=== PATIENT | male | born 1985 | race Caucasian/White ===

== ENCOUNTER → 2018-07-16 14:11 | Outpatient (CLI) | payer OTHER, SELFPAY ==
--- NOTE | 2018-07-16 14:15 | US_ITS ---
STUDY: ABDOMINAL ULTRASOUND - RIGHT UPPER QUADRANT REASON FOR VISIT: Male, 33 years old. Right upper quadrant pain. TECHNIQUE: Ultrasound evaluation of the right upper quadrant was performed with real-time and static varma-scale imaging. TECHNICAL QUALITY: Adequate. COMPARISON: None. FINDINGS: Liver: The liver measures 12.9 cm. There is normal echogenicity of the liver. The bile ducts are within normal limits. There is hepatic color flow. The direction of portal flow is hepatopetal. There is no demonstrated mass lesion. Gallbladder: Normal distended gallbladder. The gallbladder wall measures 2.1 mm. There is a negative sonographic Galo's sign. There is no pericholecystic fluid. There are no gallstones. Common Bile Duct (C.B.D.): The common bile duct measures 1.3 mm. Pancreas: Normal size of the head, body of the pancreas. The tail portion is obscured due to overlying bowel gas. There is normal echogenicity of the pancreas. There is no demonstrated pancreatic mass or cyst. Right Kidney: Normal size of the right kidney. The right kidney measures 11.7 cm x 5.3 cm x 5.1 cm. Normal renal cortex. The right cortex measures 1.3 cm. There is no demonstrated renal mass or cyst. There is no right hydronephrosis. US/Gallbladder IMPRESSION: Normal right upper quadrant ultrasound examination. Electronically Signed: Ruben Garza MD at 15:26 EST Tel [phone], Service support ,
== END ==
PROVIDERS: PCP Internal Medicine; Visit Provider Surgery
DX: R10.11 Right upper quadrant pain (principal)
CPT/HCPCS: 76705

== ENCOUNTER 2018-07-22 11:25 | Day surgery (SDC) | payer OTHER, SELFPAY ==
[2018-07-22] VITALS (7 sets, daily range): BP systolic 92–135; BP diastolic 53–85; PULSE 73–92; RESP 16; TEMP 36.5–37.6; O2SAT 94–99; BMI 26.0
--- NOTE | 2018-07-22 | IMM_PTH ---
PATIENT: JANINA SANTACRUZ LOC: EN U#:[id number] AGE/SX: 33/M ROOM: RE07/22/[address]: Dr. Jimmy Pugh MD : 1985 BED: DIS: 07/22/2018 SPEC #: [id number] RECD: 07/24/18 07:54 STATUS: GAGE LEONIDAS #: [id number] ADEN: 07/22/18 00:[address]: Jimmy Pugh DEPT: IMMUNOHISTOCHEMISTRY RECD BY: Eugenio Montesinos ENTERED: 07/24/18 07:55 SP TYPE: IMMUNO OTHR DR: Dr. Jessica Morris MD Tissues: A - Gastric mucous membrane B - Gastric mucous membrane Procedures: H Pylori (initial) PHYSICIAN & INSTITUTION [place] [id number] SPECIMEN INFORMATION: Tissue Source: A. Gastric ulcer, biopsy, B. Antral biopsy Clinical Info: RUQ pain Specimen Number: [id number] A, B CPT code: 17967 x2 METHODOLOGY: Deparaffinized sections of prefer/formalin-fixed tissue or PAP/DQ stained slides are incubated with monoclonal/polyclonal antibodies/oligonucleotide probes. Localization is made via biotin free immunoperoxidase method. Appropriate controls are performed and reacted as expected. Results on target cell population are indicated in the following table: RESULTS: ANTIBODY / CLONE RESULT Block A H Pylori (polyclonal) negative Block B H Pylori (polyclonal) negative These tests were developed and their performance characteristics determined by [facility]. They may not have been cleared or approved by the [place].S. Food and Drug Administration. The FDA has determined that such clearance or approval is not necessary. INTERPRETATION: A. Gastric ulcer: Negative for Helicobacter pylori. B. Antral biopsy: Negative for Helicobacter pylori. AM:hien 07/24/18
[2018-07-22 13:53] LABS: Hematocrit 43.2 % (40-54); Hemoglobin 14.8 g/dl (13.0-16.5); Mean Corp Hgb Conc 34.3 g/gl (32-36); Mean Corpuscular Hgb 29.7 pg (27.0-32.0); Mean Corpuscular Volume 86.6 fL (80-94); Mean Platelet Vol. 10.9 fl (6.2-12.0); Platelet Count 192 K/mm3 (150-450); RBC Distribution Width CV 12.2 % (11.6-14.6); RBC Distribution Width SD 38.3 fl (35.1-43.9); Red Blood Count 4.99 M/mm3 (4.6-6.2); Scan Indicated on CBC? Y/N NO
[2018-07-22 14:09] LABS: ALB/GLOB Ratio 1.2 RATIO (0.9-2.4); AST(SGOT) 21 U/L (15-37); Alanine Aminotransfer ALT/SGPT 38 U/L (16-61); Albumin, Serum 4.1 g/dL (3.2-5.0); Alkaline Phosphatase 95 U/L (45-117); Anion Gap 10 (5-15); BUN 13 mg/dL (7-18); BUN/Creat Ratio 14.8 RATIO (10-20); Chloride 106 mmol/L (98-107); Creatinine, Serum 0.88 mg/dL (0.70-1.30); EST Glomerular Filtration Rate 106 mL/min (>60); Est Glom Filt Rate - Afr Amer 129 mL/min (>60); Estimated Creatinine Clearance 132.27 ml/min; Globulin 3.5 g/dL (2.2-4.2); Glucose 98 mg/dL (74-106); Potassium 4.7 mmol/L (3.5-5.1); Protein, Total 7.6 g/dL (6.4-8.2); Sodium Level 141 mmol/L (136-145)
--- NOTE | 2018-07-22 15:24 | OP.ENDO_ITS ---
Patient Name: Stefan Pineda Procedure Date: 07/22/2018 2:59 PM Date of : 1985 Age: 33 Procedure: Upper GI endoscopy Indications: Abdominal pain in the right upper quadrant, Nausea with vomiting Providers: Jimmy Pugh MD Medicines: Monitored Anesthesia Care Patient Profile: This is a 33 year old male. Refer to note in patient chart for documentation of history and physical. Complications: No immediate complications. Estimated blood loss: Minimal. Procedure: Pre-Anesthesia Assessment: - Prior to the procedure, a History and Physical was performed, and patient medications and allergies were reviewed. The patient's tolerance of previous anesthesia was also reviewed. The risks and benefits of the procedure and the sedation options and risks were discussed with the patient. All questions were answered, and informed consent was obtained. Prior Anticoagulants: The patient has taken no previous anticoagulant or antiplatelet agents. After reviewing the risks and benefits, the patient was deemed in satisfactory condition to undergo the procedure. After obtaining informed consent, the endoscope was passed under direct vision. Throughout the procedure, the patient's blood pressure, pulse, and oxygen saturations were monitored continuously. The gastroscope was introduced through the mouth, and advanced to the second part of duodenum. The upper GI endoscopy was accomplished without difficulty. The patient tolerated the procedure well. Scope In: 3:09:48 PM Scope Out: 3:16:01 PM Total Procedure Duration Time 0 hours 6 minutes 13 seconds Findings: One non-bleeding linear and superficial gastric ulcer with no stigmata of bleeding was found in the prepyloric region of the stomach. Biopsies were taken with a cold forceps for histology. The exam was otherwise without abnormality. Biopsies were taken with a cold forceps in the gastric antrum for Helicobacter pylori testing. Impression: - Non-bleeding gastric ulcer with no stigmata of bleeding. Biopsied. - The examination was otherwise normal. - Biopsies were taken with a cold forceps for Helicobacter pylori testing. Recommendation: - Patient has a contact number available for emergencies. The signs and symptoms of potential delayed complications were discussed with the patient. Return to normal activities tomorrow. Written discharge instructions were provided to the patient. - Resume previous diet. - Continue present medications. - Await pathology results. - Use sucralfate suspension 1 gram PO QID for 4 weeks. Procedure Code(s): --- Professional --- 31588, Esophagogastroduodenoscopy, flexible, transoral; with biopsy, single or multiple Diagnosis Code(s): --- Professional --- K25.9, Gastric ulcer, unspecified as acute or chronic, without hemorrhage or perforation R10.11, Right upper quadrant pain R11.2, Nausea with vomiting, unspecified CPT copyright 2017 [employer]. All rights reserved. The codes documented in this report are preliminary and upon preforming machine operator review may be revised to meet current compliance requirements. Jimmy Pugh MD 07/22/2018 3:24:08 PM This report has been signed electronically. Number of Addenda: 0 Note Initiated On: 07/22/2018 2:59 PM
--- NOTE | 2018-07-22 15:45 | EGD_PTH ---
PATIENT: JANINA SANTACRUZ LOC: EN U#:[id number] AGE/SX: 33/M ROOM: RE07/22/[address]: Dr. Jimmy Pugh MD : 1985 BED: DIS: 07/22/2018 SPEC #: [id number] RECD: 07/22/18 16:55 STATUS: GAGE LEONIDAS #: [id number] ADEN: 07/22/18 15:[address]: Jimmy Pugh DEPT: SURGICAL PATHOLOGY RECD BY: Darrin Conti ENTERED: 07/23/18 10:24 SP TYPE: EGD BIOPSY OT DR: Dr. Jessica Morris MD Tissues: A - Gastric mucous membrane B - Gastric mucous membrane Procedures: Surgery Specimen Level IV HEADER OPERATION: EGD ([facility] [place] PRE-OP DIAGNOSIS: RUQ pain TISSUE SUBMITTED: A. Gastric ulcer biopsy for H. Pylori, B. Antral biopsy for H. Pylori MICROSCOPIC DIAGNOSIS A. Gastric ulcer, biopsy: Mild gastritis. B. Antral biopsy: Mild gastritis. JAZMIN:[email or web address] 07/24/18 COMMENT A & B. The results of immunohistochemistry for Helicobacter pylori will be reported separately ([id number]). MICROSCOPIC DESCRIPTION Slides are reviewed. A & B. The specimens show fragments of gastric mucosa with chronic inflammatory cell infiltrates in the lamina propria consisting of lymphocytes and plasma cells, consistent with mild chronic gastritis. GROSS DESCRIPTION A. Received is one container labeled with the patient name and designated gastric ulcer. The specimen consists of one irregular fragment of light liang soft tissue that measures 0.3 x 0.3 x 0.1 cm. The specimen is totally submitted in one cassette. B. Received is one container labeled with the patient name and designated antral biopsy. The specimen consists of two irregular fragment of light liang soft tissue that in aggregate measure 0.8 x 0.2 x 0.1 cm. The specimen is totally submitted in one cassette. JAZMIN:[email or web address] 07/23/18 TC: 3 CPT: 94801 x2
== END 2018-07-22 16:06 | disposition home or self-care (01) ==
LOC: EN 11:26 → AC 11:29
PROVIDERS: Family Provider Internal Medicine; PCP Internal Medicine; Referring Provider Surgery; Visit Provider Surgery
PROC: 0DJ08ZZ Inspection of Upper Intestinal Tract, Via Natural or Artificial Opening Endoscopic (ICD-10-PCS; CPT 43235; principal; 2018-07-22 15:40)
DX: K25.9 Gastric ulcer, unspecified as acute or chronic, without hemorrhage or perforation (principal); K29.70 Gastritis, unspecified, without bleeding; F32.9 Major depressive disorder, single episode, unspecified; Z79.899 Other long term (current) drug therapy
CPT/HCPCS: 43239; 36415; 80053; 85027; 88305; 88342; J7120

== ENCOUNTER → 2020-06-29 09:35 | Outpatient (CLI) | payer OTHER, SELFPAY | PROVIDERS: PCP Internal Medicine; Visit Provider Internal Medicine | DX: J06.9 Acute upper respiratory infection, unspecified (principal) | CPT/HCPCS: 87635; 87804; C9803; U0003 ==

== ENCOUNTER → 2022-10-11 | Outpatient (CLI) | payer OTHER, SELFPAY ==
[2022-10-11 12:36] LABS: Absolute Lymphocyte Count 1.42 X10^3/uL (0.83-4.51); Absolute Neutrophil Count 3.5 X10^3/uL (2.0-7.7); Basophil# 0.03 X10^3/uL; Basophil% 0.5 % (0-1); Eosinophil# 0.11 X10^3/uL; Hematocrit 44.8 % (40-54); Lymphocyte # 1.42 X10^3/ul (0.83-4.51); Lymphocyte % 25.4 % (19-41); Mean Corp Hgb Conc 33.5 g/dL (32-36); Mean Corpuscular Volume 86.5 fL (80-94); Mean Platelet Vol. 11.7 fl (6.2-12.0); Monocyte# 0.52 X10^3/uL; Monocyte% 9.3 % (0-10); NRBC Flagged by Analyzer 0 % (0-5); Neutrophil # 3.48 X10^3/uL (2.7-7.7); Neutrophil % 62.4 % (47-70); Platelet Count 190 K/mm3 (150-450); RBC Distribution Width CV 12.6 % (11.6-14.6); RBC Distribution Width SD 39.7 fl (35.1-43.9); Red Blood Count 5.18 M/mm3 (4.6-6.2); White Blood Count 5.6 K/mm3 (4.4-11.0)
[2022-10-11 12:39] LABS: ALB/GLOB Ratio 1.4 RATIO (0.9-2.4); AST(SGOT) 13 U/L (15-37); Alanine Aminotransfer ALT/SGPT 28 U/L (16-61); Albumin, Serum 4.3 g/dL (3.2-5.0); Alkaline Phosphatase 79 U/L (45-117); Anion Gap 6 (5-15); BUN 14 mg/dL (7-18); BUN/Creat Ratio 12.6 RATIO (10-20); Calcium,Total 9.2 mg/dL (8.5-10.1); Chloride 110 mmol/L (98-107); Cholesterol 184 mg/dL (200); Creatinine, Serum 1.11 mg/dL (0.70-1.30); EST Glomerular Filtration Rate 80 mL/min (>60); Est Glom Filt Rate - Afr Amer 96 mL/min (>60); Glucose 102 mg/dL (74-106); High Density Lipoprotein 51 mg/dL; Potassium 4.1 mmol/L (3.5-5.1); Protein, Total 7.3 g/dL (6.4-8.2); Sodium Level 141 mmol/L (136-145); Triglycerides 65 mg/dL; Very Low Density Lipoprotein 13 mg/dL (5-40)
[2022-10-11 13:21] LABS: Hemoglobin A1c 5.3 % (3.8-5.6)
== END | disposition home or self-care (01) ==
LOC: BIMLAB 09:43
PROVIDERS: PCP Internal Medicine; Referring Provider Internal Medicine; Visit Provider Internal Medicine
DX: Z00.00 Encounter for general adult medical examination without abnormal findings (principal)
CPT/HCPCS: 36415; 80053; 80061; 83036; 85025